=== PATIENT | male | born 1955 | race Caucasian/White ===

== ENCOUNTER 2017-09-29 08:02 | Day surgery (SDC) | payer BC ==
[2017-09-23 13:13] VITALS: BMI 25.5
[2017-09-29] MEDS ORDERED: PROPOFOL 20 ML ONE ×2 (08:12)
[2017-09-29] MEDS ORDERED: LIDOCAINE HCL/PF 2% SDV 5ML VIAL ONE (08:13)
[2017-09-29 08:21] VITALS: TEMP 98
[2017-09-29 09:40] VITALS: BP 100/57; PULSE 66
== END 2017-09-29 09:45 | disposition home or self-care (01) ==
LOC: FASU-ENDO 08:02
PROVIDERS: ATTEND Internal Medicine Gastroenterology
PROC: 0DJD8ZZ Inspection of Lower Intestinal Tract, Via Natural or Artificial Opening Endoscopic (ICD-10-PCS; principal; 2017-09-29 08:49)
DX: Z12.11 Encounter for screening for malignant neoplasm of colon (principal); Z80.0 Family history of malignant neoplasm of digestive organs